=== PATIENT | female | born 1985 | race Caucasian/White ===

== ENCOUNTER → 2016-10-29 | Outpatient (REF) | payer BC, MEDICAID | LOC: M SFHCLERA 14:20 | PROVIDERS: ATTEND Physician Assistant | DX: R50.9 Fever, unspecified (principal) ==

== ENCOUNTER → 2017-06-30 | Outpatient (CLI) | payer BC ==
[~2017-06-30] MED LIST: LIDOCAINE 1% MDV 20ML VIAL As Ordered ONE
--- NOTE | 2017-06-30 17:56 | REP ---
Ultrasound-guided left lower quadrant rectus muscle mass biopsy The procedure was performed under the direct supervision of Dr. Vázquez The patient has a history of eight 2 x 1.9 x 1.7 cm irregular soft tissue mass with enhancement in the subcutaneous fat anterior to the rectus muscle to the left of midline in the lower abdomen seen on a previous CT scan performed at [facility] on 06/12/2017. The risks and benefits of the procedure were explained to the patient and informed consent was obtained. The left lower quadrant abdominal mass was localized using ultrasound guidance. The skin was prepped and draped in a sterile fashion. 1% lidocaine was used as a local anesthetic. Using ultrasound guidance a 17/18 gauge coaxial needle biopsy system was inserted and five core biopsy samples were obtained and sent to lab. The patient tolerated the procedure well and there were no immediate complications. Reviewed by SHOSHANA Romero 06/30/2017 03:44 PSigned by Steve Vázquez MD 06/30/2017 05:47 P
--- NOTE | 2017-07-01 08:07 | REP ---
LIMITED PELVIC ULTRASOUND: CLINICAL: Palpable mass. TECHNIQUE: Real-time angeles scale and color evaluation using linear high frequency transducer. FINDINGS: Directed ultrasound examination over the left anterior pelvic wall at the level of the rectus muscle overlying the presumed palpable mass demonstrates a 1.5 x 1.2 x 1.6 cm hypoechoic nodular avascular mass lesion which is otherwise nonspecific by ultrasound examination. Finding is not correlated on prior CT dated 04/14/2006. IMPRESSION: 1.6 cm hypoechoic avascular nodular lesion at the site of palpable mass possibly involving the left rectus muscle. Differential may include focal granulation tissue, resolving hematoma, versus other. Consider further evaluation including contrast enhanced CT or MRI as well as tissue sampling if necessary. Signed by Srini Jarrell MD 07/05/2017 11:19 P
== END ==
LOC: M RADPRO 12:09
PROVIDERS: ATTEND Surgery
DX: N80.9 Endometriosis, unspecified (principal); F17.210 Nicotine dependence, cigarettes, uncomplicated; Z79.899 Other long term (current) drug therapy

== ENCOUNTER 2017-07-23 05:45 | Day surgery (SDC) | payer BC ==
[2017-07-23] MEDS ORDERED: LR 1,000 ML IV ×2 (06:30→09:30)
[2017-07-23 06:58] LABS: CONTROL LINE UCG INT CTR LINE PRESENT
[2017-07-23] MEDS ORDERED: MIDAZOLAM INJ 2 MG/2 ML VIAL (J2250) As Ordered (07:42)
[2017-07-23] MEDS ORDERED: LIDOCAINE 2% INJ 100 MG/5 ML SDV (FOR ANES.) As Ordered (07:42)
[2017-07-23] MEDS ORDERED: PROPOFOL 200 MG/20 ML VIAL As Ordered (07:42)
[2017-07-23] MEDS ORDERED: fentaNYL 100 MCG/2 ML INJECTION (J3010) As Ordered (07:42)
[2017-07-23] MEDS ORDERED: dexameTHASONE 4 MG/ML 1ML VIAL (J1100) As Ordered (07:43)
[2017-07-23] MEDS ORDERED: KETOROLAC 60 MG/2 ML VIAL (J1885) As Ordered (07:47)
[2017-07-23] MEDS ORDERED: ONDANSETRON 4MG/2ML VIAL (J2405) As Ordered (07:47)
[2017-07-23] MEDS ORDERED: ePHEDrine SULFATE 25 MG/5 ML(5MG/ML) SYRINGE As Ordered (07:48)
[2017-07-23] MEDS: BUPIVACAINE HCL 0.25% 30 ML VIAL As Ordered (08:31)
[2017-07-23] MEDS ORDERED: fentaNYL 100 MCG/2 ML INJECTION (J3010) IV (09:30)
[2017-07-23] MEDS ORDERED: ACETAMINOPHEN TAB 650MG DOSE (2X325MG) PO (09:30)
[2017-07-23] MEDS ORDERED: ONDANSETRON 4MG/2ML VIAL (J2405) IV (09:30)
[2017-07-23] MEDS ORDERED: NORCO, ANEXSIA 5/325MG TABLET (HYDROcodone/ACETAMINOPHEN) PO (09:30)
[2017-07-23] MEDS: NORCO, ANEXSIA 5/325MG TABLET (HYDROcodone/ACETAMINOPHEN) PO ×2 (10:11→11:00)
== END 2017-07-23 11:07 | disposition home or self-care (01) ==
LOC: M SDC 05:45
DX: N80.8 Other endometriosis (principal); K58.9 Irritable bowel syndrome, unspecified; Z72.0 Tobacco use; Z79.899 Other long term (current) drug therapy
CPT/HCPCS: 22901

== ENCOUNTER → 2021-10-29 | Outpatient (CLI) | payer BC ==
[~2021-10-29] MED LIST changes: -LIDOCAINE 1% MDV 20ML VIAL As Ordered ONE; +ZOLO50TA PO
== END ==
LOC: M WHC 10:41
PROVIDERS: ATTEND Obstetrics & Gynecology
DX: Z12.31 Encounter for screening mammogram for malignant neoplasm of breast (principal); Z80.3 Family history of malignant neoplasm of breast; R92.8 Other abnormal and inconclusive findings on diagnostic imaging of breast

== ENCOUNTER → 2021-11-05 | Outpatient (CLI) | payer BC | LOC: M WHC 14:33 | PROVIDERS: ATTEND Obstetrics & Gynecology | DX: R92.2 Inconclusive mammogram (principal) | CPT/HCPCS: 77065; G0279 ==